=== PATIENT | male | born 1940 | race Caucasian/White ===

== ENCOUNTER 2016-11-03 15:15 | Emergency (ER) | payer MEDICARE ==
[~2016-11-03] VITALS: Ht 188 cm; Wt 85.4 kg
[~2016-11-03 15:15] MED LIST: ASPI-496 PO; CHOL10003 PO; MULT-82 PO; TAMS0.4C2 PO; TIMO5DRO5 EACHEYE; TRAV5DRO EACHEYE
[2016-11-03 15:18] VITALS: BP 133/84
[2016-11-03] MEDS ORDERED: LIDOCAINE 1%, 20ML SQ ONE (15:30)
[2016-11-03] MEDS ORDERED: DIPH,PERTUSS(ACELL),TET VAC/PF 0.5 ML IM-VACC ONE ×2 (15:30→16:07)
[2016-11-03] MEDS ORDERED: LIDOCAINE 1%, 20ML ONE (15:31)
== END 2016-11-03 16:33 | disposition home or self-care (01) ==
LOC: ED 16:05
DX: S61.212A Laceration without foreign body of right middle finger without damage to nail, initial encounter (principal); X58.XXXA Exposure to other specified factors, initial encounter; Y93.89 Activity, other specified; Y92.89 Other specified places as the place of occurrence of the external cause; Y99.8 Other external cause status
CPT/HCPCS: 12001; 90471; 90715

== ENCOUNTER 2017-10-21 11:07 | Inpatient (IN) | payer MEDICARE ==
[~2017-10-21] VITALS: Ht 188 cm; Wt 82.5 kg
[~2017-10-21 11:07] MED LIST changes: +FINA5TAB4 PO; +MULT-224 PO; -MULT-82 PO
[2017-10-21] MEDS ORDERED: LACTATED RINGERS 1,000 ML IV SCH (11:39)
[2017-10-21 11:41] VITALS: BP 146/104
[2017-10-21] MEDS ORDERED: LIDOCAINE-MPF 1%, 2ML INFIL ONE (12:00)
[2017-10-21] MEDS ORDERED: ACETAMINOPHEN 500 MG TABLET ONE (12:30)
[2017-10-21] MEDS ORDERED: ACETAMINOPHEN 500 MG TABLET PO ONE (12:30)
[2017-10-21] MEDS ORDERED: GABAPENTIN 300 MG CAPSULE PO ONE (12:30)
[2017-10-21] MEDS ORDERED: GABAPENTIN 300 MG CAPSULE ONE (12:31)
[2017-10-21] MEDS ORDERED: ONDANSETRON 2MG/ML, 2ML ONE (12:35)
[2017-10-21] MEDS ORDERED: DEXAMETHASONE 4 MG/ML, 1ML ONE (12:35)
[2017-10-21] MEDS ORDERED: PROPOFOL 10 MG/ML, 20ML ONE (12:35)
[2017-10-21] MEDS ORDERED: FENTANYL PF 250 MCG/5ML ONE (12:37)
[2017-10-21] MEDS ORDERED: OPIUM/BELLADONNA SUPP.RECT 16.2-60 MG ONE (13:12)
[2017-10-21] MEDS ORDERED: PROMETHAZINE 25 MG/ML, 1ML IV PRN (16:00)
[2017-10-21] MEDS ORDERED: LORazepam 2 MG/ML, 1ML IVPush PRN (16:00)
[2017-10-21] MEDS ORDERED: OXYcodone 5 MG/5 ML ORAL.SOL UDC PO PRN (16:00)
[2017-10-21] MEDS ORDERED: HYDROmorphone 1 MG/ML, 1ML IV PRN (16:00)
[2017-10-21] MEDS ORDERED: LABETALOL 5MG/ML, 20ML IV PRN (16:00)
[2017-10-21] MEDS ORDERED: ACETAMINOPHEN 325 MG TABLET PO PRN (16:00)
[2017-10-21] MEDS ORDERED: ALBUTEROL SULFATE 2.5 MG/3 ML NPPB PRN (16:00)
[2017-10-21] MEDS ORDERED: hydrALAzine 20 MG/ML, 1ML IV PRN (16:00)
[2017-10-21] MEDS ORDERED: FENTANYL PF 100 MCG/2ML ONE (16:46)
[2017-10-21] MEDS ORDERED: OXYcodone 5 MG/5 ML ORAL.SOL UDC ONE (16:46)
[2017-10-21] MEDS: FENTANYL PF 100 MCG/2ML IV PRN ×2 (16:53→17:01)
[2017-10-21 17:40] VITALS: BP 143/92
[2017-10-21] MEDS ORDERED: ONDANSETRON 2MG/ML, 2ML IV PRN (19:00)
[2017-10-21] MEDS ORDERED: D5%-0.45NACL+KCL 20MEQ 1,000 ML IV SCH (19:00)
[2017-10-21] MEDS ORDERED: OPIUM/BELLADONNA SUPP.RECT 16.2-60 MG PR PRN (19:00)
[2017-10-21] MEDS ORDERED: OXYcodone IR 5MG TABLET PO PRN (19:00)
[2017-10-21 19:23] VITALS: BP 128/82
[2017-10-21] MEDS: ACETAMINOPHEN 500 MG TABLET PO SCH (20:20)
[2017-10-21] MEDS: SODIUM CHLORIDE FLUSH 3ML SYRINGE IVF SCH (21:00)
[2017-10-21 23:31] VITALS: BP 105/76
[2017-10-22 03:58] VITALS: BP 102/66
[2017-10-22] MEDS: ACETAMINOPHEN 500 MG TABLET PO SCH ×3 (04:10→21:14)
[2017-10-22 05:35] LABS: CALCIUM 8.8 mg/dL (8.5-10.1); CHLORIDE 110 mmol/L (98-107)
[2017-10-22 05:39] LABS: ANION GAP 6 mmol/L (5-15)
[2017-10-22] MEDS: TIMOLOL OPHTH 0.5%, 5ML EACHEYE SCH ×2 (07:16→21:00)
[2017-10-22 08:13] VITALS: BP 113/75
[2017-10-22] MEDS: SODIUM CHLORIDE FLUSH 3ML SYRINGE IVF SCH ×2 (09:00→21:00)
[2017-10-22 13:54] VITALS: BP 102/66
[2017-10-22 18:41] VITALS: BP 130/80
[2017-10-22] MEDS ORDERED: MAGNESIUM HYDROXIDE 8%, 30ML UDC ONE (22:16)
[2017-10-22] MEDS ORDERED: ZOLPIDEM 5MG TABLET PO PRN (22:30)
[2017-10-22] MEDS ORDERED: MAGNESIUM HYDROXIDE 8%, 30ML UDC PO PRN (22:30)
[2017-10-23 01:25] VITALS: BP 125/80
[2017-10-23 03:16] VITALS: BP 130/82
[2017-10-23] MEDS: ACETAMINOPHEN 500 MG TABLET PO SCH ×3 (04:10→19:52)
[2017-10-23 04:40] LABS: ANION GAP 5 mmol/L (5-15); CALCIUM 8.7 mg/dL (8.5-10.1); CHLORIDE 112 mmol/L (98-107); CREATININE 1.05 mg/dL (0.7-1.3)
[2017-10-23] MEDS: SODIUM CHLORIDE FLUSH 3ML SYRINGE IVF SCH ×2 (08:40→19:52)
[2017-10-23 08:47] VITALS: BP 137/82
[2017-10-23 13:18] VITALS: BP 121/81
[2017-10-23 19:09] VITALS: BP 132/76
[2017-10-23] MEDS: TIMOLOL OPHTH 0.5%, 5ML EACHEYE SCH (19:52)
[2017-10-24 00:46] VITALS: BP 126/81
[2017-10-24] MEDS: ACETAMINOPHEN 500 MG TABLET PO SCH ×2 (03:56→11:30)
[2017-10-24 05:23] LABS: ANION GAP 6 mmol/L (5-15); CALCIUM 8.8 mg/dL (8.5-10.1); CHLORIDE 111 mmol/L (98-107); CREATININE 0.93 mg/dL (0.7-1.3)
[2017-10-24 07:32] VITALS: BP 136/96
[2017-10-24] MEDS: SODIUM CHLORIDE FLUSH 3ML SYRINGE IVF SCH (08:22)
== END 2017-10-24 14:37 | disposition home or self-care (01) | DRG 713 ==
LOC: OUT 11:07 → 4NOR 17:22 → OUT 17:26 → DCLOUNGE 10-24 14:27
PROVIDERS: ADMIT Urology; ATTEND Urology
PROC: 0V507ZZ Destruction of Prostate, Via Natural or Artificial Opening (ICD-10-PCS; principal; 2017-10-21 13:30)
DX: N40.1 Benign prostatic hyperplasia with lower urinary tract symptoms (principal); N13.8 Other obstructive and reflux uropathy; Z90.49 Acquired absence of other specified parts of digestive tract
CPT/HCPCS: 36415; 80048; 85014; 85018; 93005; J1100; J2405; J2704; J3010; J3480

== ENCOUNTER 2017-11-13 18:28 | Emergency (ER) | payer MEDICARE ==
[~2017-11-13] VITALS: Ht 188 cm; Wt 82.0 kg
[2017-11-13 19:05] LABS: MEAN CORPUSCULAR HEMOGLOBIN 31.7 pg (27.5-34.5); MEAN CORPUSCULAR HGB CONC 33.4 g/dL (33.2-36.2); MEAN CORPUSCULAR VOLUME 94.9 fL (81-97); MEAN PLATELET VOLUME 7.7 fL (7.4-10.4); PLATELET COUNT 480 x10^3/uL (130-400); RED CELL DISTRIBUTION WIDTH 14.2 % (9.4-14.8)
[2017-11-13 19:10] LABS: ALBUMIN 4.1 g/dL (3.4-5.0); ANION GAP 11 mmol/L (5-15); CHLORIDE 104 mmol/L (98-107)
[2017-11-13 19:12] LABS: ALANINE AMINOTRANSFERASE 26 U/L (12-78); ALKALINE PHOSPHATASE 100 U/L (45-117); BILIRUBIN,TOTAL 0.4 mg/dL (0.2-1.0)
[2017-11-13 19:30] LABS: BASOPHILS # (AUTO) 0.07 x10^3/uL (0-0.1); BASOPHILS % (AUTO) 0 % (0-1); EOSINOPHILS # (AUTO) 0.03 x10^3/uL (0-0.4); EOSINOPHILS % (AUTO) 0 % (1-7); LYMPHOCYTES # (AUTO) 2.14 x10^3/uL (1-3.4); LYMPHOCYTES % (AUTO) 12 % (22-44); MD SCAN; MONOCYTES # (AUTO) 0.89 x10^3/uL (0.2-0.8); MONOCYTES % (AUTO) 5 % (2-9); NEUTROPHILS # (AUTO) 15.33 x10^3/uL (1.8-6.8); NEUTROPHILS % (AUTO) 83 % (42-75)
[2017-11-13 19:38] LABS: MICROSCOPIC INDICATED
[2017-11-13 19:47] LABS: CULTURE INDICATED? YES
[2017-11-13 20:55] VITALS: BP 129/90
== END 2017-11-13 21:29 | disposition home or self-care (01) ==
LOC: ED 20:55
DX: R33.9 Retention of urine, unspecified (principal); R31.0 Gross hematuria; Z90.79 Acquired absence of other genital organ(s)
CPT/HCPCS: 36415; 51702; 80053; 81001; 85025; 87086; 99284

== ENCOUNTER 2017-11-14 00:27 | Observation (INO) | payer MEDICARE ==
[~2017-11-14] VITALS: Ht 188 cm; Wt 84.0 kg
[2017-11-14] MEDS ORDERED: SODIUM CHLORIDE FLUSH 10ML SYR IVF ONE (03:00)
[2017-11-14] MEDS ORDERED: MORPHINE SULFATE 4 MG/ML, 1ML ONE (03:20)
[2017-11-14] MEDS: MORPHINE SULFATE 4 MG/ML, 1ML IVPush PRN ×2 (03:21→03:57)
[2017-11-14] MEDS ORDERED: LIDOCAINE 2%,20 ML JEL.PF.APP MM ONE ×2 (03:26→03:30)
[2017-11-14] MEDS ORDERED: SODIUM CHLORIDE 0.9% 1,000ML IVBOLUS ONE (04:00)
[2017-11-14 04:08] LABS: INTERNATIONAL NORMALIZED RATIO 0.98 (0.93-1.1); PROTHROMBIN TIME 10.1 Seconds (9.6-11.5)
[2017-11-14] MEDS ORDERED: FENTANYL PF 100 MCG/2ML ONE (04:29)
[2017-11-14] MEDS ORDERED: CEFAZOLIN 1,000 MG ONE (04:30)
[2017-11-14] MEDS ORDERED: PHENYLEPHRINE 10 MG/ML ONE (04:30)
[2017-11-14] MEDS ORDERED: PROPOFOL 10 MG/ML, 20ML ONE (04:31)
[2017-11-14] MEDS ORDERED: DEXAMETHASONE 4 MG/ML, 1ML ONE ×2 (04:31→04:51)
[2017-11-14] MEDS ORDERED: ONDANSETRON 2MG/ML, 2ML ONE ×2 (04:51)
[2017-11-14] MEDS ORDERED: ACETAMINOPHEN 650 MG/20.3 ML UDC ONE (05:21)
[2017-11-14] MEDS ORDERED: MEPERIDINE/PF 25MG/0.5ML ONE (05:22)
[2017-11-14] MEDS ORDERED: OXYcodone 5 MG/5 ML ORAL.SOL UDC ONE (05:22)
[2017-11-14] MEDS ORDERED: OPIUM/BELLADONNA SUPP.RECT 16.2-30 MG PR PRN (05:30)
[2017-11-14] MEDS ORDERED: hydrALAzine 20 MG/ML, 1ML IV PRN (05:30)
[2017-11-14] MEDS ORDERED: MORPHINE SULFATE 4 MG/ML, 1ML IV PRN (05:30)
[2017-11-14] MEDS ORDERED: PROMETHAZINE 25 MG/ML, 1ML IV PRN (05:30)
[2017-11-14] MEDS ORDERED: ONDANSETRON 2MG/ML, 2ML IVPush PRN (05:30)
[2017-11-14] MEDS ORDERED: HYDROmorphone 1 MG/ML, 1ML IV PRN (05:30)
[2017-11-14] MEDS ORDERED: OXYBUTYNIN CHLORIDE 5 MG TABLET PO PRN (05:30)
[2017-11-14] MEDS ORDERED: PROMETHAZINE 12.5 MG SUPP PR PRN (05:30)
[2017-11-14] MEDS ORDERED: ACETAMINOPHEN 325 MG TABLET PO PRN (05:30)
[2017-11-14] MEDS ORDERED: LORazepam 2 MG/ML, 1ML IVPush PRN (05:30)
[2017-11-14] MEDS ORDERED: ONDANSETRON 2MG/ML, 2ML IV PRN (05:30)
[2017-11-14] MEDS ORDERED: MEPERIDINE/PF 25MG/0.5ML IVPush PRN (05:30)
[2017-11-14] MEDS ORDERED: MIDAZOLAM 1 MG/ML, 2ML IV PRN (05:30)
[2017-11-14] MEDS ORDERED: ALBUTEROL SULFATE 2.5 MG/3 ML NPPB PRN (05:30)
[2017-11-14] MEDS ORDERED: ONDANSETRON ODT 8 MG PO PRN (05:30)
[2017-11-14] MEDS ORDERED: OXYcodone 5 MG/5 ML ORAL.SOL UDC PO PRN ×2 (05:30)
[2017-11-14] MEDS ORDERED: FENTANYL PF 100 MCG/2ML IV PRN (05:30)
[2017-11-14] MEDS ORDERED: LABETALOL 5MG/ML, 20ML IV PRN (05:30)
[2017-11-14 07:14] VITALS: BP 104/68
[2017-11-14] MEDS: D5%-LACTATED RINGERS 1,000 ML IV SCH ×2 (08:24→16:17)
[2017-11-14] MEDS: ACETAMINOPHEN 325 MG TABLET PO SCH ×3 (08:25→20:45)
[2017-11-14] MEDS: POLYETHYLENE GLYCOL 17 GM PACKET PO SCH (08:25)
[2017-11-14] MEDS: DOCUSATE 100 MG CAPSULE PO SCH ×2 (08:25→20:45)
[2017-11-14 13:27] VITALS: BP 106/54
[2017-11-14 18:24] VITALS: BP 108/62
[2017-11-15] MEDS: D5%-LACTATED RINGERS 1,000 ML IV SCH ×2 (00:37→09:46)
[2017-11-15] MEDS: ACETAMINOPHEN 325 MG TABLET PO SCH ×2 (02:30→08:17)
[2017-11-15 02:49] VITALS: BP 110/64
[2017-11-15 06:57] VITALS: BP 110/67
[2017-11-15] MEDS: DOCUSATE 100 MG CAPSULE PO SCH (08:17)
[2017-11-15] MEDS: POLYETHYLENE GLYCOL 17 GM PACKET PO SCH (08:17)
[2017-11-15 13:03] VITALS: BP 111/64
== END 2017-11-15 13:10 | disposition home or self-care (01) ==
LOC: ED 03:21 → INTOOBSV 05:03 → EDIP 05:03 → 4NOR 06:20
PROVIDERS: ADMIT Student in an Organized Health Care Education/Training Program; ATTEND Student in an Organized Health Care Education/Training Program
DX: N40.1 Benign prostatic hyperplasia with lower urinary tract symptoms (principal); D62 Acute posthemorrhagic anemia; R31.0 Gross hematuria; R33.9 Retention of urine, unspecified
CPT/HCPCS: 36415; 52214; 80047; 85014; 85610; 85730; 86850; 86900; 96374; 96376; 99285; G0378; J0690; J1100; J2175; J2370; J2405; J2704; J3010; J7030; J7121